=== PATIENT | male | born 1960 | race Caucasian/White ===

== ENCOUNTER → 2023-10-23 06:32 | Day surgery (SDC) | payer BC, SELFPAY | LOC: GI 06:32 | PROVIDERS: ATTENDING PHYSICIAN Internal Medicine | DX: D12.2 Benign neoplasm of ascending colon (principal); D12.3 Benign neoplasm of transverse colon; K57.30 Diverticulosis of large intestine without perforation or abscess without bleeding; K62.1 Rectal polyp; K64.9 Unspecified hemorrhoids; K29.80 Duodenitis without bleeding; K21.00 Gastro-esophageal reflux disease with esophagitis, without bleeding; K44.9 Diaphragmatic hernia without obstruction or gangrene; K31.7 Polyp of stomach and duodenum; K31.89 Other diseases of stomach and duodenum; R12 Heartburn; Z72.0 Tobacco use; Z86.010 Personal history of colon polyps; Z13.810 Encounter for screening for upper gastrointestinal disorder | CPT/HCPCS: 45385; 45380; 43239; 88305; 88341; 88342 ==